=== PATIENT | male | born 1950 | race Caucasian/White ===

== ENCOUNTER → 2022-02-07 15:36 | Outpatient (CLI) | payer OTHER, SELFPAY ==
--- NOTE | 2022-02-07 15:43 | DI.MRI.S_ITS ---
PROCEDURE: MR HIP LT WO CON INDICATIONS: Idiopathic aseptic necrosis of unspecified femur TECHNIQUE: Noncontrast coronal T1 spin echo and STIR through the bony pelvis. Coronal and axial T2 fast spin echo with fat saturation, sagittal T1 spin echo, and oblique axial T2 fast spin echo with fat saturation through the hip. COMPARISON: None. FINDINGS: Image quality: Excellent. Bones and joints: Moderate diffuse generative ill-defined T2 signal elevation within the left acetabulum and femoral head. Moderate left hip joint periarticular osteophyte formation. Bone marrow of the pelvic ring and proximal femurs demonstrates otherwise normal signal throughout. No intraosseous lesions or fractures. No avascular necrosis of the femoral heads. The visualized lower lumbar spine appears normally aligned. Moderate left hip joint effusion. Tendons and ligaments: The gluteus medius and minimus tendons appear intact, without associated muscle atrophy. Mild T2 signal elevation adjacent to the femoral insertion sites of the left gluteus medius and minimus tendons. The nearby proximal iliotibial band also appears intact. The iliopsoas tendon appears intact, without adjacent bursal fluid collections or evidence for impingement syndrome. The origin of the hamstring tendon is intact at the ischial tuberosity, as well as the associated sacrotuberous ligament. The straight and reflected heads of the rectus femoris muscle origin appear intact, as well as the conjoint tendon. The ligamentum teres appears intact where visualized. Labrum and cartilage: Severe diffuse degenerative tearing of the left hip labrum. Cartilage surface of the femoral head appears of normal thickness. The alpha angle of the femur is within normal limits at less than 55 degrees. Soft tissues: Visualized muscles demonstrate normal bulk and internal signal. Quadratus femoris muscle demonstrates no internal edema to suggest ischiofemoral impingement. The proximal sciatic neurovascular bundle appears normal adjacent to the hamstring tendons. No free pelvic fluid. Bladder wall thickness is normal. Genitourinary structures and bowel loops appear normal where visualized. IMPRESSION: 1. Left hip osteoarthritis with associated degenerative hip labral tearing. 2. Left hip joint effusion. 3. Insertional tendinitis of the left gluteus medius and minimus tendons. Dictated by: Jerome Miller M.D. on 02/07/2022 at 16:40 Approved by: Jerome Miller M.D. on 02/07/2022 at 16:42
== END ==
PROVIDERS: PCP Family Medicine
DX: M16.12 Unilateral primary osteoarthritis, left hip (principal); M25.452 Effusion, left hip; M76.02 Gluteal tendinitis, left hip; M87.059 Idiopathic aseptic necrosis of unspecified femur
CPT/HCPCS: 73721

== ENCOUNTER → 2024-11-13 10:54 | Outpatient (CLI) | payer OTHER, SELFPAY ==
--- NOTE | 2024-11-13 10:55 | DI.MRI.S_ITS ---
PROCEDURE: MR HEAD/BRAIN WO/W CON INDICATIONS: syncope and agitation TECHNIQUE: Noncontrast axial T1 spin echo, axial T2 fast spin echo, sagittal and axial FLAIR, coronal T2 fast spin echo, axial gradient echo, axial diffusion and ADC through the brain. After the administration of contrast, axial and coronal and sagittal T1 spin echo with fat saturation through the brain. COMPARISON: None. FINDINGS: Image quality: Excellent. CSF spaces: Basal cisterns are patent. No extra-axial fluid collections. Ventricles are normal in size and shape. Brain: No midline shift. No intracranial bleeds or masses. No abnormal intracranial enhancement. There is cerebral volume loss for age. There is periventricular white matter chronic small vessel ischemic change. The brainstem appears normal. Diffusion-weighted images demonstrate no acute infarct. No chronic ischemic insults. Normal intravascular flow voids are present. Skull and face: Calvarial marrow is normal in signal. Orbits appear normal. Sinuses: Sinuses and mastoids appear clear. IMPRESSION: Excellent appearance of the brain parenchyma for age. No evidence of prior trauma. No vascular abnormality seen. Dictated by: Lino Gallegos M.D. on 11/13/2024 at 12:10 Approved by: Lino Gallegos M.D. on 11/13/2024 at 12:10
== END ==
PROVIDERS: PCP Family Medicine; Referring Provider Family Medicine; Visit Provider Family Medicine
DX: R55 Syncope and collapse (principal); R45.1 Restlessness and agitation
CPT/HCPCS: 70553; A9579

== ENCOUNTER → 2024-11-20 13:40 | Outpatient (CLI) | payer OTHER, SELFPAY | PROVIDERS: PCP Family Medicine; Referring Provider Family Medicine; Visit Provider Family Medicine | DX: R55 Syncope and collapse (principal); R40.20 Unspecified coma | CPT/HCPCS: 93246; 93248 ==

== ENCOUNTER → 2025-05-21 12:53 | Outpatient (CLI) | payer OTHER, SELFPAY ==
[2025-05-21 14:11] LABS: Appearance Urine UA CLEAR; Bilirubin Urine UA NEGATIVE (NEGATIVE); Color Urine UA YELLOW; Glucose Urine UA NEGATIVE (Negative); Ketones Urine UA NEGATIVE (NEGATIVE); Leukocyte Esterase Urine UA NEGATIVE (NEGATIVE); Nitrite Urine UA NEGATIVE (Negative); Occult Blood Urine UA NEGATIVE (Negative); Protein Urine UA NEGATIVE (Negative); Specific Gravity Urine UA <=1.005 (1.000-1.035); Urobilinogen Urine UA 0.2 E.U./dL (0.2); pH Urine UA 6.5 (4.5-8.0)
[2025-05-21 14:18] LABS: Culture Indicated Urine Cult Not Indicated
[2025-05-21 14:35] LABS: Alanine Aminotransferase 73 IU/L (<50); Albumin 4.4 g/dL (3.5-5.0); Albumin Globulin Ratio 1.6 (1.0-2.8); Alkaline Phosphatase 110 U/L (38-126); Blood Urea Nitrogen 8 mg/dL (9-20); Calcium 8.5 mg/dL (8.4-10.2); Carbon Dioxide 22 mmol/L (22-32); Chloride 101 mmol/L (98-107); Estimated Glomerular Filt Rate 54 mL/min (>60); Globulin 2.8 g/dL (1.7-4.1); Glucose 85 mg/dL (70-99); HEMOLYSIS < 15 (0-50); Potassium 3.7 mmol/L (3.4-5.1); Sodium 137 mmol/L (137-145); Total Protein 7.2 g/dL (6.3-8.2)
[2025-05-21 14:45] LABS: Microalbumi Creatinin Ratio Ur 21.0 ug/mg CR (<30)
== END ==
PROVIDERS: PCP Family Medicine; Referring Provider Family Medicine; Visit Provider Family Medicine
DX: R79.89 Other specified abnormal findings of blood chemistry (principal)
CPT/HCPCS: 36415; 80053; 81001; 82043; 82570

== ENCOUNTER → 2025-06-09 11:44 | Outpatient (CLI) | payer OTHER, SELFPAY ==
[2025-06-09 12:56] LABS: Hematocrit 41.1 % (41-53); Hemoglobin 13.9 g/dL (13.5-17.5); Mean Corpuscular HGB Conc 33.8 % (30-36); Mean Corpuscular Hemoglobin 31.1 PG (26-34); Mean Corpuscular Volume 92.0 fL (80-100); Platelet Count 177 X10^3/uL (150-400)
[2025-06-09 13:23] LABS: HEMOLYSIS 31 (0-50); Iron 103 ug/dL (49-181)
[2025-06-09 13:29] LABS: Hemoglobin A1C% w Est Avg Glu 5.3 % (4.0-6.0)
[2025-06-09 13:30] LABS: Alanine Aminotransferase 60 IU/L (<50); Albumin 4.3 g/dL (3.5-5.0); Albumin Globulin Ratio 1.5 (1.0-2.8); Alkaline Phosphatase 151 U/L (38-126); Blood Urea Nitrogen 9 mg/dL (9-20); Calcium 8.0 mg/dL (8.4-10.2); Carbon Dioxide 20 mmol/L (22-32); Chloride 100 mmol/L (98-107); Estimated Glomerular Filt Rate > 60 mL/min (>60); Gamma Glutamyl Transpeptidase 572 U/L (15-73); Globulin 2.9 g/dL (1.7-4.1); Glucose 82 mg/dL (70-99); HEMOLYSIS < 15 (0-50); Potassium 4.0 mmol/L (3.4-5.1); Sodium 135 mmol/L (137-145); Total Protein 7.2 g/dL (6.3-8.2)
[2025-06-09 13:34] LABS: Percent Iron Saturation 60 % (20-50); Total Iron Binding Capacity 171 ug/dL (261-462); Transferrin 167 mg/dL (206-381)
[2025-06-09 15:23] LABS: Ferritin 2120 ng/mL (18-464)
[2025-06-10 02:36] LABS: Hepatitis A Antibody IgM Negative (Negative); Hepatitis B Core Antibody IgM Negative (Negative); Hepatitis C Antibody Non Reactive (Non Reactive)
== END ==
PROVIDERS: PCP Family Medicine; Referring Provider Family Medicine; Visit Provider Family Medicine
DX: R79.89 Other specified abnormal findings of blood chemistry (principal); N17.9 Acute kidney failure, unspecified
CPT/HCPCS: 36415; 80053; 80074; 82728; 82977; 83036; 83540; 83550; 85027

== ENCOUNTER → 2025-06-12 09:29 | Outpatient (CLI) | payer OTHER, SELFPAY ==
--- NOTE | 2025-06-12 09:30 | DI.CT.S_ITS ---
PROCEDURE: CT CHEST ABD PEL W CON INDICATIONS: diarrhea, poor appetite, LLQ pain, LFT elevation TECHNIQUE: After the administration of intravenous contrast, 5 mm thick sections acquired from the lung apices to the symphysis. 5 mm coronal and sagittal reformats were performed, with additional 7 mm MIP reformats through the lungs. For radiation dose reduction, the following was used: automated exposure control, adjustment of mA and/or kV according to patient size. COMPARISON: None. FINDINGS: Image quality: Excellent. CHEST: Mildly prominent interstitial markings at the lung base some of which may be related to subsegmental atelectasis and chronic lung changes. Mild COPD/emphysematous changes. No pneumothorax, no pleural effusion, no lobar consolidation. Moderate calcifications of the coronary arteries and mild calcifications of the aortic arch, aortic valve and descending aorta. Heart size within normal limits. No pericardial effusion. Moderate degenerative changes of the thoracic spine without CT evidence of fracture or subluxation. Lower Neck: No enlarged lymph nodes. Thyroid: No thyroid nodules which require sonographic follow up, per consensus guidelines. Axillae: No enlarged lymph nodes. Chest Wall: Unremarkable. Remote healed left anterior 7th and 8th rib fractures. No acute rib fracture. Thoracic Vessels: The aorta and pulmonary arteries demonstrate normal size. Mediastinum and Ronna: No enlarged lymph nodes. Esophagus: No wall thickening. No hiatal hernia. ABDOMEN: Abnormal wall thickening of the colon from the cecum to the rectum most notably in the distal descending and sigmoid colon , has the appearance of diffuse colitis. Pseudomembranous colitis or other infectious/inflammatory colitis could give this appearance. Scattered diverticula are noted in the descending and sigmoid colon. No free gas, no focal fluid collection or abscess. [id number] nonspecific wall thickening of the urinary bladder measures up to 1 centimeter thickness some of which may be artifact from partial nondistention however chronic urinary retention, cystitis or other infiltrative bladder wall process should be considered. Prostate gland and seminal vesicles are within normal limits in size with nonspecific calcifications. Moderate calcifications of the aorta and iliac vessels. Normal nondilated appendix. Moderate degenerative changes lower thoracic, lumbar spine without CT evidence of fracture or subluxation. Mild central stenosis L4-5. Gallbladder is mildly distended some of which may be commonly related to NPO. No CT evidence of high attenuation gallstones, no gallbladder wall thickening or pericholecystic fluid Nonspecific wall thickening of the stomach and duodenum commonly artifact from partial nondistention although mild gastritis, duodenitis could have this appearance. Moderate diffuse low-attenuation of the liver, hepatic steatosis and or intrinsic hepatic disease. No CT evidence of focal hepatic lesion. Liver is normal in size, 14 cm in CC dimension of the right lobe. Biliary ducts: No biliary dilation. Pancreas: Moderate pancreatic atrophy without CT evidence of focal lesion or abnormal ductal dilatation. Spleen: Normal. Adrenal Glands: No adrenal nodules. Kidneys and Ureters: No hydronephrosis. No solid mass. No complex renal cystic lesion which requires follow up. Small Bowel: Normal caliber, without significant wall thickening or evidence of obstruction. Peritoneum: No abnormal intraperitoneal fluid. No free air. Ventral Wall: No significant ventral hernia. Abdominal Nodes: No retroperitoneal or mesenteric adenopathy by size criteria. Vessels: Aorta and inferior vena cava are normal in size. PELVIS: Pelvic Nodes: No enlarged lymph nodes. Miscellaneous: No inguinal hernias are seen. IMPRESSION: Diffuse colitis as discussed above. Follow-up is needed. Hepatic steatosis as discussed above. Nonspecific wall thickening of the stomach and duodenum. Other chronic findings as above. Dictated by: Estevan Walters M.D. on 06/12/2025 at 11:11 Approved by: Estevan Walters M.D. on 06/12/2025 at 11:20
== END ==
LOC: CT 09:29
PROVIDERS: PCP Family Medicine; Referring Provider Family Medicine; Visit Provider Family Medicine
DX: K51.90 Ulcerative colitis, unspecified, without complications (principal); K76.0 Fatty (change of) liver, not elsewhere classified; I25.10 Atherosclerotic heart disease of native coronary artery without angina pectoris; I70.0 Atherosclerosis of aorta; I70.8 Atherosclerosis of other arteries; R79.89 Other specified abnormal findings of blood chemistry; R19.7 Diarrhea, unspecified; R11.0 Nausea; Z91.89 Other specified personal risk factors, not elsewhere classified; Z87.81 Personal history of (healed) traumatic fracture
CPT/HCPCS: 71260; 74177; Q9967